=== PATIENT | female | born 1995 | race Caucasian/White ===

== ENCOUNTER → 2017-05-12 | Outpatient (CLI) | payer BC ==
[~2017-05-12] MED LIST: BCPILLS PO
--- NOTE | 2017-05-12 16:11 | MAMMOGRAPHY REPORT ---
ULTRASOUND OF RIGHT BREAST: 05/12/2017 CLINICAL HISTORY: The patient reports a palpable lump in her right breast. She denies any nipple dis charge or associated pain. COMPARISON: No prior exams were available for comparison. TECHNIQUE: Real-time targeted ultrasound of the right breast was performed. FINDINGS: Real-time, high resolution targeted ultrasound was performed of the area of the palpable l ump pointed out by the patient, in the right 1 to 2:00 subareolar region. At the site of the palpabl e lump there is a superficial oval circumscribed 7 x 4 x 5 mm mass, which is partially anechoic but h as some echogenic material within it. Posterior acoustic enhancement is also noted. The mass is pro bably benign and likely represents a complicated cyst although a solid internal component cannot be e xcluded. The options of short interval follow-up versus biopsy were discussed with the patient, and at this time we will opt for short interval follow-up given the benign morphology on ultrasound. IMPRESSION: ACR-BI-RADS CATEGORY 3: PROBABLY BENIGN - FOLLOW-UP RECOMMENDED Benign-appearing circumscribed 7 mm mass in the right 1 to 2:00 subareolar breast. The mass is proba ki benign and may represent a complicated cyst although a mixed cystic and solid mass cannot entirel y be excluded. Recommend follow-up ultrasound of the right breast in 6 months to confirm stability. Also recommend clinical follow-up, and if the mass clinically enlarges before 6 months, the patient should return sooner for repeat imaging. The patient was verbally notified of the results. Concepción Amador M.D. ah/:05/12/2017 09:01:10 Lease Administration Analyst: Liliana OROZCO(Ruddy)(Carleen), [facility] letter sent: Follow Up Recommended 3 BI-RADS Code: ACR-BI-RADS Category 3: Probably Benign
== END | disposition home or self-care (01) ==
LOC: C.MAMM 08:17
PROVIDERS: ATTEND Obstetrics & Gynecology
DX: N63 Unspecified lump in breast (principal)

== ENCOUNTER → 2017-08-30 | Outpatient (CLI) | payer BC ==
[~2017-08-30] MED LIST changes: +GADAVIST IV PRN
--- NOTE | 2017-08-30 19:21 | DIAGNOSTIC IMAGING REPORT ---
MRI OF THE BRAIN COMBO CLINICAL HISTORY: Migraine headache. Upper extremity weakness. Dizziness. Blurry vision in the left eye. COMPARISON STUDY: No priors. TECHNIQUE: MRI of the brain was performed utilizing various T1 and T2-weighted sequences in the axial, sagittal, and coronal planes. Contrast-enhanced sequences were acquired following the administration of 5.5 cc of Gadavist. FINDINGS: Brain parenchyma: The brain parenchyma is normal in appearance. There is no hemorrhage or mass effect. There is no restricted diffusion to suggest acute ischemia. No enhancing mass lesion is identified on the postcontrast images. Gomez-white matter differentiation is preserved. No extra-axial fluid collection is seen. The cerebellar tonsils are normal in configuration. Ventricles, sulci, and cisterns: Normal in configuration. Pituitary and sella: Unremarkable. Intracranial vasculature: Normal flow voids are maintained at the skull base. Orbits: The bony orbits are grossly intact. Orbital contents are normal in appearance. Sinuses and mastoids: Clear. Calvarium: There is a 2.3 cm well-circumscribed lesion identified within the occipital calvarium. This is best seen on axial image #12 and is heterogeneous with intermediate signal intensity on T1 and slightly hypointense signal on T2. There is postcontrast enhancement. No additional calvarial lesions are identified. Cervical cord: Partially visualized cervical spinal cord is normal in morphology and signal intensity. IMPRESSION: 1. No acute intracranial abnormality. 2. 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 Correlation with a CT scan of the brain is recommended for further assessment. Electronically signed by: Yoan Winn M.D. 08/30/2017 7:20 PM Dictated Date/Time: 08/30/2017 7:14 PM
== END | disposition home or self-care (01) ==
LOC: C.MRI 18:25
PROVIDERS: ATTEND Family Medicine
DX: M62.81 Muscle weakness (generalized) (principal); R51 Headache; R93.0 Abnormal findings on diagnostic imaging of skull and head, not elsewhere classified

== ENCOUNTER → 2017-09-12 | Outpatient (CLI) | payer BC ==
[~2017-09-12] MED LIST changes: -GADAVIST IV PRN
[2017-09-15 02:27] LABS: CHLAMYDIA TRACH RNA*** NOT DETECTED (NOT DETECTED); GC (NEIS GONORRHOEAE)RNA** NOT DETECTED (NOT DETECTED)
== END | disposition home or self-care (01) ==
LOC: C.LABSPEC 18:01
PROVIDERS: ATTEND Obstetrics & Gynecology
DX: Z01.419 Encounter for gynecological examination (general) (routine) without abnormal findings (principal)